=== PATIENT | female | born 1930 | race Caucasian/White ===

== ENCOUNTER 2017-08-02 11:01 | Emergency (ER) | payer OTHER, MEDICARE ==
--- NOTE | 2017-08-02 11:09 | PDOC ---
Attending Attestation - HPI HPI: 08/02/17 13:15 The patient is a 86 year old female with a significant past medical history of HTN and major depressive disorder who presents to the ED s/p mechanical fall earlier today. The patient reports she was leaving [employer] earlier today when she was walking on a stone walkway and tripped over a stone. Patient states she fell onto her left sided and reports hitting her head. Patient was able to ambulate after fall. Denies loss of consciousness. Denies palpitations, lightheadedness, or chest pain. Denies visual changes. Denies nausea or vomiting. Denies any other symptoms. Documentation prepared by Virgil Thompson, acting as medical clerk for Adriana Neville MD/DO. <Virgil Thompson - Last Filed: 08/02/17 13:15> - Resident Resident Name: Maria LuisaLyssa jacob - HPI HPI: I Dr. Adriana Neville attest that [facility] scribes documentation that appears above has been prepared under my direction and personally reviewed by me. I confirm thatthe note accurately reflects all work ,treatment , procedures and medical decision-making performed by me. 08/03/17 01:33 - Physicial Exam PE: 08/03/17 01:37 86 y/o female tripped and fell hit left side of head, witnessed fall, no loc, no nausea or vomitting, no headache or blurred vision. Head: + ecchymosis with small hematoma noted to left side of faec near left eye area neck: supple, no midline tenderness Lungs: + bs nas cta Heart: S1S2 regular Abd: + bs abd soft no guarding or rigidity Neuro: alert and oriented x3, nl gait, no focal deficits - Medical Decision Making 08/03/17 01:40 86 y/o female witnessed mechanicl fall, brought to ed for eval after hitting her head whle on coumadin. CT of head noted, pt in no distress, small hematoma with ecchymosis noted , Pt stable for dc home with out pt head injury instruction <Adriana Neville - Last Filed: 08/03/17 01:42>
[2017-08-02 11:32] VITALS: BMI 30.6
[2017-08-02 11:56] LABS: BASO % 0.8 % (0-2.0); HEMATOCRIT 38.7 % (32.4-45.2); HEMOGLOBIN 12.9 GM/dL (10.7-15.3); LYMPH % 15.8 % (8-40); MCH 31.3 pg (25.7-33.7); MCHC 33.4 g/dl (32.0-36.0); MEAN CELL VOLUME 93.7 fl (80-96); MEAN PLT VOLUME 8.2 fl (7.5-11.1); MONO % 10.4 % (3.8-10.2); PLATELET COUNT 171 K/MM3 (134-434); RBC 4.13 M/mm3 (3.60-5.2); RDW 13.3 % (11.6-15.6); WHITE BLOOD COUNT 6.4 K/mm3 (4.0-10.0)
[2017-08-02 12:13] LABS: INR 1.04 (0.82-1.09); PROTHROMBIN TIME (PATIENT) 11.7 SEC (9.98-11.88)
[2017-08-02 12:23] LABS: ALBUMIN 3.6 g/dl (3.4-5.0); ANION GAP 6 (8-16); BLOOD UREA NITROGEN 31 mg/dL (7-18); CALCIUM 9.6 mg/dL (8.5-10.1); CHLORIDE 101 mmol/L (98-107); CO2 32 mmol/L (21-32); GLUCOSE,RANDOM 105 mg/dL (74-106); MAGNESIUM 1.9 mg/dL (1.8-2.4); POTASSIUM 4.7 mmol/L (3.5-5.1); SGOT/AST 25 U/L (15-37); SGPT/ALT 29 U/L (12-78); SODIUM 139 mmol/L (136-145)
[2017-08-02 12:25] LABS: ALK PHOS 106 U/L (45-117); BILIRUBIN,TOTAL 0.4 mg/dL (0.2-1.0); TOT PROT 6.4 g/dl (6.4-8.2)
--- NOTE | 2017-08-02 12:38 | PDOC ---
History of Present Illness - General Chief Complaint: Injury Stated Complaint: FALL Time Seen by Provider: 08/02/17 11:09 History Source: Patient - History of Present Illness Initial Comments: 08/02/17 12:32 Patient 86 y.o. female with PMH of HTN, MDD who presents to the ED following a mechanical fall. Patient states she was walking outside today on a stone walkway when her foot got caught in a divot in between the walkway and the ground and she fell on her L side hitting head. Patient denies any pre-fall shortness of breath lightheadedness, chest pain, visual changes, palpitations. Patient was immediately ambulatory post fall and brought to our ED by a fellow worshiper who happens to be an EMT and noted patient was A&O x3, neurologically intact and ambulatory during transport. Patient denies chest pain, shortness of breath, abdominal pain, nausea/vomiting , constipation/diarrhea. NKDA Surgical: R hip, R knee, L knee replacement, L hip replacement scheduled August 2017 Social: denies cigarettes, denies alcohol, denies recreational drugs Medications: Losartan, Lisinopril, HCT, Effexor, Cymbalta, Lamotrigine, ASA, Atorvostatin, Propanolol Past History - Past Medical History Allergies/Adverse Reactions: Allergies Allergy/AdvReac Type Severity Reaction Status Date / Time No Known Allergies Allergy Verified 08/02/17 11:18 Home Medications: Ambulatory Orders Aspirin [Aspirin EC] 81 mg PO DAILY 12/18/13 Atorvastatin Ca [Lipitor] 40 mg PO HS 12/18/13 Hydrochlorothiazide [Hctz -] 25 mg PO DAILY 12/18/13 Lamotrigine [Lamictal] 100 mg PO DAILY 12/18/13 Lisinopril [Prinivil -] 40 mg PO DAILY 12/18/13 Losartan Potassium 100 mg PO DAILY 12/18/13 Venlafaxine HCl [Effexor -] 37.5 mg PO DAILY 12/18/13 propRANOLol HCL [Inderal -] 60 mg PO BID 12/18/13 Duloxetine HCl [Cymbalta -] 20 mg PO DAILY 12/23/13 Venlafaxine HCl ER [Effexor Xr -] 150 mg PO DAILY 07/09/14 Zolpidem Tartrate [Ambien] 2.5 mg PO HS PRN 07/09/14 Cancer: Yes (lumpectomy) COPD: No HTN: Yes Hypercholesterolemia: Yes Psychiatric Problems: Yes Lung CA: Yes - Surgical History Abdominal Surgery: Yes Appendectomy: Yes Neurologic Surgery: Yes (LUMBAR LAMINECTOMY) - Suicide/Smoking/Psychosocial Hx Smoking History: Never smoked Hx Alcohol Use: No Drug/Substance Use Hx: No Substance Use Type: None Review of Systems - Review of Systems Constitutional: No: Chills HEENTM: No: Recent change in vision Respiratory: No: Shortness of Breath Cardiac (ROS): No: Chest Pain *Physical Exam - Vital Signs Last Vital Signs Temp Pulse Resp BP Pulse Ox 98 F 68 18 187/81 99 08/02/17 11:20 08/02/17 11:20 08/02/17 11:20 08/02/17 11:20 08/02/17 11:20 - Physical Exam Comments: 08/02/17 12:38 GENERAL: The patient is awake, alert, and fully oriented, Nontoxic, no C-spine tenderness, no vertebral tenderness, pelvis stable HEAD: L sided infraobital hematoma, no laceration, EYES: PEERLA, extraocular movements intact, sclera anicteric, conjunctiva clear. ENT: Normal voice,Moist mucous membranes. NECK: Normal range of motion, supple LUNGS: Breath sounds equal, clear to auscultation bilaterally.No wheezes, no rhonchi, no rales. HEART: Regular rate and rhythm, normal S1 and S2 without murmur, rub or gallop. ABDOMEN: Soft, nontender, normoactive bowel sounds. No guarding, no rebound. No CVA tenderness EXTREMITIES: Normal range of motion, no edema.No clubbing or cyanosis. NEUROLOGICAL: CN II-XI intact, intact DTR's, 2+ pedal pulses PSYCH: Normal mood, normal affect. SKIN: Warm, Dry, normal turgor ED Treatment Course - LABORATORY CBC & Chemistry Diagram: 08/02/17 11:32 08/02/17 11:32 - ADDITIONAL ORDERS Additional order review: Laboratory Results 08/02/17 08/02/17 11:50 11:32 PT with INR 11.70 INR 1.04 Sodium 139 Potassium 4.7 Chloride 101 Carbon Dioxide 32 Anion Gap 6 L BUN 31 H Creatinine 1.0 Creat Clearance w eGFR 52.45 Random Glucose 105 Calcium 9.6 Magnesium 1.9 AST 25 ALT 29 Albumin 3.6 08/02/17 11:32 RBC 4.13 MCV 93.7 MCHC 33.4 RDW 13.3 MPV 8.2 Neutrophils % 71.0 Lymphocytes % 15.8 Monocytes % 10.4 H Eosinophils % 2.0 Basophils % 0.8 - RADIOLOGY Radiology Studies Ordered: Category Date Time Status HEAD CT WITHOUT CONTRAST [CT] Stat CT Scan 08/02/17 11:14 Completed Medical Decision Making - Medical Decision Making 08/02/17 12:40 Patient is an 86 y.o. female on A/C who presents following a likely mechanical fall with head trauma and no LOC. On PE patient is alert, pelvis stable, no C spine/vertebral tenderness and neurologically intact. No Sánchez sign, minor facial hematoma. Will CT Head to r/o active bleed including hematoma. Reassess 08/02/17 13:[address] negative for acute bleed. 08/02/17 13:19 Patient ambulatory, tolerating PO intake. At this time patient has been observed in the ED for > 2 hours with improvement in symptoms will discharge home with return precautions and NSAID's for pain relief. *DC/Admit/Observation/Transfer Diagnosis at time of Disposition: Fall - Discharge Dispostion Disposition: HOME Condition at time of disposition: Good Admit: No - Referrals Referrals: Luis Spain MD [Primary Care Provider] - - Patient Instructions Additional Instructions: You were evaluated today for a fall. Your labs and a cat scan of your head showed no concerning findings. You can use Motrin for your pain. Please return to the Emergency Department for any new/worsening/concerning symptoms. - Post Discharge Activity
[2017-08-02 13:32] VITALS: BP 176/76; PULSE 72; TEMP 98.1
--- NOTE | 2017-08-02 16:05 | EKG ---
Test Reason : Blood Pressure : / mmHG Vent. Rate : 054 BPM Atrial Rate : 054 BPM P-R Int : 160 ms QRS Dur : 080 ms QT Int : 436 ms P-R-T Axes : 034 014 038 degrees QTc Int : 413 ms SINUS BRADYCARDIA OTHERWISE NORMAL ECG WHEN COMPARED WITH ECG OF 09-JUL-2014 16:59, PREMATURE VENTRICULAR COMPLEXES ARE NO LONGER PRESENT Confirmed by BRISSA SARKAR MD ([id number]) on 08/02/2017 4:04:44 PM Referred By: Confirmed By:BRISSA SARKAR MD
== END 2017-08-02 13:45 | disposition home or self-care (01) ==
LOC: JER 11:01
DX: S05.12XA Contusion of eyeball and orbital tissues, left eye, initial encounter (principal); W01.0XXA Fall on same level from slipping, tripping and stumbling without subsequent striking against object, initial encounter; Y93.89 Activity, other specified; Y92.22 Religious institution as the place of occurrence of the external cause; Y99.8 Other external cause status; Z79.01 Long term (current) use of anticoagulants; I10 Essential (primary) hypertension; F33.9 Major depressive disorder, recurrent, unspecified; Z96.653 Presence of artificial knee joint, bilateral; Z96.641 Presence of right artificial hip joint
CPT/HCPCS: 36415; 70450-TC; 80053; 83735; 85025; 85610; 86850; 86900; 86901; 93005; 93010; 99283-25